=== PATIENT | female | born 1960 | race American Indian/Alaskan Native ===

== ENCOUNTER 2017-02-21 21:11 | Emergency (ER) | payer BC ==
[~2017-02-21] VITALS: Ht 158.8 cm; Wt 63.8 kg
[~2017-02-21 21:11] MED LIST: CALCTAB5 PO; FERR325T51 PO; MULT-506 PO
[2017-02-21 21:14] VITALS: TEMP 37; Ht 158.8 cm; Wt 63.8 kg
[2017-02-21] MEDS ORDERED: ONDANSETRON 8 MG/54 ML D5W IV STA (21:25)
[2017-02-21] MEDS ORDERED: SODIUM CHLORIDE 0.9% 1000ML 1,000 ML IV STA (21:25)
[2017-02-21 21:53] LABS: BASO % 0.3 %; BASO ABS # 0.04 K/uL (0-0.2); HEMATOCRIT 41.6 % (37-47); IG% 0.5 %; LYMPH % 6.6 %; LYMPH ABS # 0.83 K/uL (1.2-3.4); MEAN CELL VOLUME 73.6 fL (80-100); MEAN CORPUSCULAR HEMOGLOBIN 23.9 pg (25-34); MEAN CORPUSCULAR HGB CONC 32.5 g/dl (32-36); MONO % 2.1 %; NEUT % 90.5 %; PLATELET COUNT 286 K/uL (130-400); RED BLOOD COUNT 5.65 M/uL (4.2-5.4); WHITE BLOOD COUNT 12.66 K/uL (4.8-10.8)
[2017-02-21 22:10] LABS: ALT/SGPT 26 U/L (12-78); BLOOD UREA NITROGEN 5 mg/dl (7-18); BUN/CREATININE RATIO 8.5 (10-20); CALCIUM 9.5 mg/dl (8.5-10.1); CARBON DIOXIDE 25 mmol/L (21-32); CHLORIDE 101 mmol/L (98-107); CREATININE 0.53 mg/dl (0.60-1.20); GLUCOSE 131 mg/dl (70-99); POTASSIUM 3.4 mmol/L (3.5-5.1); SODIUM 135 mmol/L (136-145)
--- NOTE | 2017-02-21 22:12 | EMERGENCY ROOM VISIT NOTE ---
History Report prepared by Brenda: Win Ziegler Under the Supervision of: Daniel KimO. First contact with patient: 21:17 Chief Complaint: VOMITING Stated Complaint: VOMTING,FEVER,YELLOW COLOR THROUGH OUT History of Present Illness The patient is a 56 year old female who presents to the Emergency Room with complaints of intermittent vomiting starting this morning. The patient states that she had a sore throat, and then she started vomiting yellow color. She additionally states that she is congested, has a headache, has abdominal pain, and she has chills. She is denying any diarrhea, though she has had 3-4 bowel movements today which is abnormal. The patient states that she has not had any changes in her diet. Pt denies change in vision, fevers, cough, chest pain, shortness of breath, pain with urination, and melena. Patient states she just flew in from the [facility], and suspicious that she picked up an illness from some on her flight. Patient states she was not sick yesterday prior to her travel. No other recent travel or sick contacts. Patient does not take any medications. Source of History: patient Onset: this morning Position: other (global) Quality: other (vomiting) Timing: intermittent Associated Symptoms: + chills, + headache, + sorethroat, + nausea, + abdominal pain Review of Systems See HPI for pertinent positives & negatives. A total of 10 systems reviewed and were otherwise negative. Past Medical & Surgical Medical Problems: (1) Anemia Surgical Problems: (1) H/O: hysterectomy Social History Smoking Status: Never Smoker Marital Status: Housing Status: lives with family Current/Historical Medications Scheduled Hydroquinone (Hydroquinone), 1 APPLN TOP BID Ondasetron Odt (Zofran Odt), 4 MG SL Q6H [Refissa], 1 APPLN TOP HS Allergies Coded Allergies: No Known Allergies (Verified , 02/21/17) Physical Exam Vital Signs Date Time Temp Pulse Resp B/P (MAP) Pulse Ox O2 Delivery O2 Flow Rate FiO2 02/22/17 00:35 104 18 138/76 99 02/21/17 23:19 107 18 146/77 100 Room Air 02/21/17 21:52 107 02/21/17 21:14 37.0 105 20 134/72 98 Room Air Physical Exam GENERAL: alert, well appearing, well nourished, no distress, non-toxic EYE EXAM: normal conjunctiva, PERRL and EOM's grossly intact OROPHARYNX: no exudate, no erythema, lips, buccal mucosa, and tongue normal and mucous membranes are moist NECK: supple, no nuchal rigidity, no adenopathy, non-tender LUNGS: Clear to auscultation. Normal chest wall mechanics HEART: no murmurs, S1 normal and S2 normal ABDOMEN: Mild epigastric pain. Abdomen soft, normo-active bowel sounds, no masses, no rebound or guarding. BACK: Back is symmetrical on inspection and there is no deformity, no midline tenderness, no CVA tenderness. SKIN: no rashes and no bruising UPPER EXTREMITIES: upper extremities are grossly normal. LOWER EXTREMITIES: No pitting edema. NEURO EXAM: Normal sensorium, cranial nerves II-XII grossly intact, normal speech, no gross weakness of arms, no gross weakness of legs. Gross sensation intact. Medical Decision & Procedures ER Provider Diagnostic Interpretation: Radiology results have been interpreted by the radiologist and reviewed by me. ABDOMEN 2VIEW W/PA CHEST RTN CLINICAL HISTORY: vomiting nausea. Vomiting. COMPARISON STUDY: 07/25/2015 FINDINGS: The soft tissues, psoas shadows, renal outlines and intestinal gas pattern appear normal. There is no evidence for bowel obstruction. There is no evidence for free intraperitoneal air. No abnormal abdominal calcifications are seen. A frontal view of the chest was performed and is unremarkable. IMPRESSION: Normal study. The above report was generated using voice recognition software. It may contain grammatical, syntax or spelling errors. Electronically signed by: Dane Sainz M.D. 02/21/2017 10:20 PM Dictated Date/Time: 02/21/2017 10:20 PM Laboratory Results 02/21/17 21:42 Red Blood Count 5.65, Mean Corpuscular Volume 73.6, Mean Corpuscular Hemoglobin 23.9, Mean Corpuscular Hemoglobin Concent 32.5, Mean Platelet Volume 11.0, Neutrophils (%) (Auto) 90.5, Lymphocytes (%) (Auto) 6.6, Monocytes (%) (Auto) 2.1, Eosinophils (%) (Auto) 0.0, Basophils (%) (Auto) 0.3, Neutrophils # (Auto) 11.46, Lymphocytes # (Auto) 0.83, Monocytes # (Auto) 0.27, Eosinophils # (Auto) 0.00, Basophils # (Auto) 0.04 02/21/17 21:42 Test 02/21/17 21:42 02/21/17 21:52 White Blood Count 12.66 K/uL (4.8-10.8) Red Blood Count 5.65 M/uL (4.2-5.4) Hemoglobin 13.5 g/dL (12.0-16.0) Hematocrit 41.6 % (37-47) Mean Corpuscular Volume 73.6 fL (80-100) Mean Corpuscular Hemoglobin 23.9 pg (25-34) Mean Corpuscular Hemoglobin Concent 32.5 g/dl (32-36) Platelet Count 286 K/uL (130-400) Mean Platelet Volume 11.0 fL (7.4-10.4) Neutrophils (%) (Auto) 90.5 % Lymphocytes (%) (Auto) 6.6 % Monocytes (%) (Auto) 2.1 % Eosinophils (%) (Auto) 0.0 % Basophils (%) (Auto) 0.3 % Neutrophils # (Auto) 11.46 K/uL (1.4-6.5) Lymphocytes # (Auto) 0.83 K/uL (1.2-3.4) Monocytes # (Auto) 0.27 K/uL (0.11-0.59) Eosinophils # (Auto) 0.00 K/uL (0-0.5) Basophils # (Auto) 0.04 K/uL (0-0.2) RDW Standard Deviation 39.0 fL (36.4-46.3) RDW Coefficient of Variation 14.8 % (11.5-14.5) Immature Granulocyte % (Auto) 0.5 % Immature Granulocyte # (Auto) 0.06 K/uL (0.00-0.02) Red Blood Cell Morphology Unremarkable Anion Gap 9.0 mmol/L (3-11) Est Creatinine Clear Calc Drug Dose 102.8 ml/min Estimated GFR () 121.3 Estimated GFR (Non- 104.7 BUN/Creatinine Ratio 8.5 (10-20) Calcium Level 9.5 mg/dl (8.5-10.1) Total Bilirubin 0.5 mg/dl (0.2-1) Aspartate Amino Transf (AST/SGOT) 17 U/L (15-37) Alanine Aminotransferase (ALT/SGPT) 26 U/L (12-78) Alkaline Phosphatase 146 U/L (45-117) Troponin I < 0.015 ng/ml (0-0.045) Total Protein 8.4 gm/dl (6.4-8.2) Albumin 4.2 gm/dl (3.4-5.0) Globulin 4.2 gm/dl (2.5-4.0) Albumin/Globulin Ratio 1.0 (0.9-2) Lipase 80 U/L (73-393) Bedside Lactic Acid Venous 1.05 mmol/L (0.90-1.70) Laboratory results per my review. Medications Administered Medications (Trade) Dose Ordered Sig/Jomar Route Start Time Stop Time Status Last Admin Dose Admin Ondansetron HCl (Zofran 8mg Iv) 8 mg NOW STAT IV 02/21/17 21:25 02/21/17 21:29 DC 02/21/17 21:25 8 MG Sodium Chloride 1,000 ml @ 999 mls/hr Q1H1M STAT IV 02/21/17 21:25 02/21/17 22:25 DC 02/21/17 21:25 999 MLS/HR Ondansetron HCl (ZOFRAN ODT 4MG Home Pack) 1 homepack UD ONCE PO 02/22/17 00:30 02/22/17 00:31 DC 02/22/17 00:30 1 HOMEPACK ECG Indication: vomiting Rate (beats per minute): 105 Rhythm: sinus tachycardia Findings: no acute ischemic change, no ectopy, other (Low voltage QRS. Normal axis) ED Course 2116: The patient was evaluated in room C11. A complete history and physical exam was performed. 2124: Sodium Chloride 1000 ml @ 999 mls/hr IV, Zofran 8mg IV 5: I reevaluated the patient, and she is not as nauseous. Medical Decision Differential diagnosis: Etiologies such as gastroenteritis, food borne illness, infections, appendicitis , diverticulitis, inflammatory bowel disease, obstruction, GI bleed, biliary pathology, as well as others were entertained. Patient with several symptoms here, likely viral syndrome and origin. Labs and imaging reassuring and patient markedly improved following IV fluids and Zofran. Patient was tolerating by mouth, had a steady gait at time of discharge. Discussed with her symptoms to watch and return for, use of antibiotics, possible differential diagnosis, she verbalized understanding was agreeable with plan. Doubt mesenteric ischemia, colitis, perfect, GI bleed, peptic ulcer disease, pneumonia, acute sinusitis, appendicitis, ACS, vascular etiology, bacteremia/sepsis. Medication Reconcilliation Current Medication List: was personally reviewed by me Blood Pressure Screening Patient's blood pressure: Normal blood pressure Impression Primary Impression: Vomiting Additional Impressions: Abdominal pain URI (upper respiratory infection) Scribe Attestation The scribe's documentation has been prepared under my direction and personally reviewed by me in its entirety. I confirm that the note above accurately reflects all work, treatment, procedures, and medical decision making performed by me. Departure Information Dispostion Home / Self-Care Prescriptions Ondasetron Odt (ZOFRAN ODT) 4 Mg Tab 4 MG SL Q6H for Nausea, #20 TAB Prov: Janna Lopez, DO 02/22/17 Referrals Paul Lake M.D. (PCP) Patient Instructions My [facility] Additional Instructions Please rest and sip clear liquids at frequent intervals to stay well hydrated. You may use the nausea medication as needed. If you have any recurrent vomiting , develop fevers/chills, diarrhea, worsening abdominal pain, or you have any other new or concerning symptoms, please return to the emergency room. Problem Qualifiers Primary Impression: Vomiting Vomiting type: unspecified Vomiting Intractability: non-intractable Nausea presence: with nausea Qualified Codes: R11.2 - Nausea with vomiting, unspecified Additional Impressions: Abdominal pain Abdominal location: epigastric Qualified Codes: R10.13 - Epigastric pain URI (upper respiratory infection) URI type: unspecified URI Qualified Codes: J06.9 - Acute upper respiratory infection, unspecified
[2017-02-21 22:15] LABS: ALKALINE PHOSPHATASE 146 U/L (45-117); AST/SGOT 17 U/L (15-37)
--- NOTE | 2017-02-21 22:21 | DIAGNOSTIC IMAGING REPORT ---
ABDOMEN 2VIEW W/PA CHEST RTN CLINICAL HISTORY: vomiting nausea. Vomiting. COMPARISON STUDY: 07/25/2015 FINDINGS: The soft tissues, psoas shadows, renal outlines and intestinal gas pattern appear normal. There is no evidence for bowel obstruction. There is no evidence for free intraperitoneal air. No abnormal abdominal calcifications are seen. A frontal view of the chest was performed and is unremarkable. IMPRESSION: Normal study. The above report was generated using voice recognition software. It may contain grammatical, syntax or spelling errors. Electronically signed by: Dane Sainz M.D. 02/21/2017 10:20 PM Dictated Date/Time: 02/21/2017 10:20 PM
[2017-02-21 22:30] LABS: COMPLETE YES
[2017-02-21] MEDS ORDERED: HYDR4CRE5 TOP (22:35)
[2017-02-21] MEDS ORDERED: [UNRECOGNIZED DRUG - OTHER] TOP (22:35)
[2017-02-22] MEDS ORDERED: ONDANSETRON HOME PACK 4MG OD TAB PO ONE (00:30)
[2017-02-22] MEDS ORDERED: ONDA4TAB10 SL (00:30)
[2017-02-22 00:35] VITALS: BP 138/76; PULSE 104; O2SAT 99
== END 2017-02-22 00:36 | disposition home or self-care (01) ==
LOC: EDBD 21:12 → C.EDB 21:12 → C.EDC 02-22 00:36
DX: R11.2 Nausea with vomiting, unspecified (principal); R10.13 Epigastric pain; J06.9 Acute upper respiratory infection, unspecified; D64.9 Anemia, unspecified